=== PATIENT | female | born 1985 | race African-American/Black ===

== ENCOUNTER → 2017-02-22 | Outpatient (CLI) | payer BC ==
[~2017-02-22] MED LIST: AMITRIPTYLINE H50 M1 PO; CIPRO 500MG TA500 MG PO; FLAGYL500 MG PO; NORCO 325 MG-7.1 TAB PO; PERCOCET 325 MG1 TA2 PO; PROTONIX 40MG T40 MG PO; TOPAMAX50 MG PO; VALTREX 50500 MG/TAB PO; ZOFRAN 4MG T4 MG/TAB PO; ZOFRAN ODT4 MG PO
== END ==
LOC: COL.RAD 09:25
DX: R10.84 Generalized abdominal pain (principal); K57.92 Diverticulitis of intestine, part unspecified, without perforation or abscess without bleeding
CPT/HCPCS: Q9967

== ENCOUNTER → 2017-03-07 | Outpatient (CLI) | payer BC | LOC: COL.RAD 07:57 | DX: R10.84 Generalized abdominal pain (principal) | CPT/HCPCS: A9541 ==

== ENCOUNTER 2017-04-06 08:11 | Emergency (ER) | payer BC ==
[~2017-04-06] VITALS: Ht 165.1 cm; Wt 86.4 kg
[~2017-04-06 08:11] MED LIST changes: -PERCOCET 325 MG1 TA2 PO; -ZOFRAN ODT4 MG PO
[2017-04-06 08:13] VITALS: BP 132/61; TEMP 98.6
[2017-04-06 08:50] LABS: BASO % 0.3 % (0.0-2.0); EOS # 0.1 (0.0-0.7); EOS % 0.7 % (0-4.0); GRAN # 10.2 (1.4-6.5); GRAN % 80.6 % (42.2-75.2); HEMATOCRIT 40.9 % (37.0-47.0); LYMPH # 1.8 (1.2-3.4); LYMPH % 14.2 % (20.0-51.0); MEAN CELL VOLUME 89 fl (80.0-100.0); MEAN CORPUSCULAR HEMOGLOBIN 30 pg (27.0-31.0); MEAN CORPUSCULAR HGB CONC 34 g/dl (33.0-37.0); MEAN PLATELET VOLUME 11.1 fl (7.4-10.4); MONO # 0.5 (0.1-0.6); MONO % 3.9 % (1.7-9.3); PLATELET COUNT 211 K/mm3 (130-400); RED BLOOD COUNT 4.61 M/mm3 (4.10-5.30); REDCELL DISTRIBUTION WIDTH-CV 11.2 % (11.5-14.5); WHITE BLOOD COUNT 12.7 K/mm3 (4.8-10.8)
[2017-04-06 09:09] LABS: ADJUSTED CALCIUM 9.1 mg/dL (8.4-10.2); ALBUMIN 4.2 gm/dL (3.5-5.0); BILIRUBIN,TOTAL 1.2 mg/dL (0.0-1.0); C-REACTIVE PROTEIN 2.9 mg/dL (0.0-0.9); CALCIUM 9.3 mg/dL (8.4-10.2); CREATININE, serum 0.68 mg/dL (0.52-1.25); TOTAL PROTEIN 7.9 gm/dL (6.4-8.2)
[2017-04-06 10:23] LABS: PH 8 (5-8); SQUAMOUS EPITHELIAL 0-2 /hpf; URINE APPEARANCE Hazy; URINE BACTERIA Rare /hpf; URINE BILIRUBIN Negative (NEGATIVE); URINE BLOOD Negative (NEGATIVE); URINE COLOR Straw; URINE GLUCOSE Negative (NEGATIVE); URINE KETONE Negative (NEGATIVE); URINE RBC 0-2 /hpf; URINE UROBILINOGEN Negative (NEGATIVE); URINE WBC 0-2 /hpf
[2017-04-06] MEDS ORDERED: FLAGYL500 MG PO (10:40)
[2017-04-06] MEDS ORDERED: CIPRO 500MG TA500 MG PO (10:40)
[2017-04-06] MEDS ORDERED: PERCOCET 325 MG1 TA2 PO (10:40)
[2017-04-06] MEDS ORDERED: ZOFRAN ODT4 MG PO (10:40)
[2017-04-06 10:51] VITALS: PULSE 99
== END 2017-04-06 10:57 | disposition home or self-care (01) ==
LOC: COL.ER 08:11
PROVIDERS: Emergency Medicine
DX: K57.32 Diverticulitis of large intestine without perforation or abscess without bleeding (principal); F32.9 Major depressive disorder, single episode, unspecified; G43.909 Migraine, unspecified, not intractable, without status migrainosus
CPT/HCPCS: J1170; J2405; J3010; J7030; Q9967

== ENCOUNTER 2017-04-12 13:43 | Emergency (ER) | payer BC ==
[~2017-04-12] VITALS: Ht 165.1 cm; Wt 93.2 kg
[~2017-04-12 13:43] MED LIST changes: +PERCOCET 325 MG1 TA2 PO; +ZOFRAN ODT4 MG PO
[2017-04-12 14:46] LABS: PH 5 (5-8); URINE APPEARANCE Hazy; URINE BACTERIA Rare /hpf; URINE BILIRUBIN Negative (NEGATIVE); URINE BLOOD Negative (NEGATIVE); URINE COLOR Amber; URINE GLUCOSE Negative (NEGATIVE); URINE KETONE Trace (NEGATIVE); URINE UROBILINOGEN Negative (NEGATIVE)
[2017-04-12 14:46] LABS: BASO % 0.4 % (0.0-2.0); EOS # 0.1 (0.0-0.7); EOS % 1.2 % (0-4.0); GRAN # 5.9 (1.4-6.5); GRAN % 69.6 % (42.2-75.2); HEMATOCRIT 43.1 % (37.0-47.0); HEMOGLOBIN 15.1 g/dl (12.5-16.0); LYMPH % 23.8 % (20.0-51.0); MEAN CELL VOLUME 87 fl (80.0-100.0); MEAN CORPUSCULAR HEMOGLOBIN 30 pg (27.0-31.0); MEAN CORPUSCULAR HGB CONC 35 g/dl (33.0-37.0); MEAN PLATELET VOLUME 10.5 fl (7.4-10.4); MONO # 0.4 (0.1-0.6); MONO % 4.8 % (1.7-9.3); PLATELET COUNT 225 K/mm3 (130-400); RED BLOOD COUNT 4.96 M/mm3 (4.10-5.30); REDCELL DISTRIBUTION WIDTH-CV 11.4 % (11.5-14.5); WHITE BLOOD COUNT 8.5 K/mm3 (4.8-10.8)
[2017-04-12 14:53] LABS: ADJUSTED CALCIUM 9.1 mg/dL (8.4-10.2); ALANINE AMINOTRANSFERASE 65 U/L (9-52); ALBUMIN 4.3 gm/dL (3.5-5.0); ALKALINE PHOSPHATASE 66 U/L (50-136); ANION GAP 13 mmol/L (7-16); BILIRUBIN,TOTAL 0.6 mg/dL (0.0-1.0); BLOOD UREA NITROGEN 15 mg/dL (7-17); CALCIUM 9.3 mg/dL (8.4-10.2); CARBON DIOXIDE 19 mmol/L (22-30); CHLORIDE 108 mmol/L (98-107); CREATININE, serum 0.87 mg/dL (0.52-1.25); GLUCOSE 82 mg/dL (74-106); POTASSIUM 3.7 mmol/L (3.4-5.0); SODIUM 139 mmol/L (137-145)
[2017-04-12 14:54] LABS: C-REACTIVE PROTEIN < 0.5 mg/dL (0.0-0.9)
[2017-04-12 18:28] VITALS: TEMP 97.6
[2017-04-12 20:55] VITALS: BP 105/55; PULSE 87
== END 2017-04-12 21:51 | disposition short-term general hospital (02) ==
LOC: COL.ER 13:43
PROVIDERS: Nurse Practitioner
DX: K57.32 Diverticulitis of large intestine without perforation or abscess without bleeding (principal)
CPT/HCPCS: J1170; J2405; J2550; J7030